=== PATIENT | female | born 2000 | race Caucasian/White ===

== ENCOUNTER 2022-04-04 00:47 | Inpatient (IN) | payer MEDICAID ==
[2022-04-04] MEDS ORDERED: IBUPROFEN 600 MG TABLET PO PRN (01:25)
[2022-04-04] MEDS ORDERED: SODIUM CHLORIDE FLUSH 0.9% 10 ML SYRINGE IVP PRN (01:25)
[2022-04-04] MEDS ORDERED: CEFOTETAN DISODIUM 2 GM in SODIUM CHLORIDE 0.9% MINIBAG 100 ML IV SCH (02:00)
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
[2022-04-04] MEDS ORDERED: CEFOTETAN DISODIUM 1 GM VIAL ONE ×2 (04:03→13:37)
[2022-04-04] MEDS: SODIUM CHLORIDE 0.9% 1,000 ML IV SCH ×2 (04:06→14:15)
[2022-04-04] MEDS: ONDANSETRON 4 MG/2 ML VIAL IVP PRN ×3 (04:08→23:59)
[2022-04-04] MEDS: oxyCODONE 5 MG TABLET PO PRN ×5 (04:08→23:59)
[2022-04-04] MEDS: SODIUM CHLORIDE FLUSH 0.9% 10 ML SYRINGE IVP SCH ×2 (04:08→16:03)
[2022-04-04 05:29] LABS: BASOPHILS % (AUTO) 0.1 %; HCT - HEMATOCRIT 38.9 % (37.0-47.0); LYMPHOCYTES # (AUTO) 2.1 10^3/uL (1.5-3.5); LYMPHOCYTES % (AUTO) 12.7 %; MEAN CORPUSCULAR HEMOGLOBIN 30.1 pg (27.0-31.0); MEAN CORPUSCULAR HGB CONC 33.4 g/dL (32.0-36.0); MEAN PLATELET VOLUME 9.8 fL (7.9-10.8); MONOCYTES % (AUTO) 6.3 %; NEUTROPHILS # (AUTO) 13.3 10^3/uL (1.5-6.6); NEUTROPHILS % (AUTO) 80.5 %; PLT - PLATELET COUNT 314 10^3/uL (130-450); RED BLOOD COUNT 4.32 10^6/uL (4.20-5.40); WHITE BLOOD COUNT 16.5 x10^3/uL (4.8-10.8)
[2022-04-04 05:52] LABS: ALBUMIN/GLOBULIN RATIO 1.2 (1.0-2.2); BILIRUBIN,TOTAL 0.6 mg/dL (0.2-1.0); CALCIUM 9.2 mg/dL (8.5-10.3); CREATININE 0.6 mg/dL (0.4-1.0); POTASSIUM 3.4 mmol/L (3.5-5.0); TOTAL PROTEIN 7.4 g/dL (6.7-8.2)
[2022-04-04] MEDS: DOXYCYCLINE 100 MG TABLET PO SCH ×2 (08:37→21:18)
[2022-04-04] MEDS: FLUoxetine 10 MG CAPSULE PO SCH (10:07)
[2022-04-04] MEDS: ONDANSETRON ODT 4 MG TABLET TL PRN (10:18)
[2022-04-04] MEDS: CEFOTETAN DISODIUM 2 GM in SODIUM CHLORIDE 0.9% 100ML 100 ML IV SCH (14:15)
--- NOTE | 2022-04-04 16:15 | PHARMACY PROGRESS NOTE ---
- Best Possible Medication History Admit Date and Time: 04/04/22 0225 Processed by: Pharmacy Medication History completed: Yes Patient Interview: Completed Secondary Source(s): Insurance records (See Addendum) As the person ultimately responsible for medication therapy, providers are able to order a medication from an existing home medication list in [facility] via the "Reconcile Routine" prior to Confirmation of that medication by air support operations operator. Such practice is discouraged except when the physician, in their clinical judgment, deems that a medical need exists for a medication without regard to previous use.
[2022-04-04] MEDS ORDERED: LOPERAMIDE 2 MG CAPSULE PO PRN (16:55)
[2022-04-04] MEDS: KETOROLAC 30 MG/ML VIAL IVP SCH ×2 (17:10→23:57)
[2022-04-04] MEDS: PROMETHAZINE 25 MG/1 ML VIAL IM PRN (17:13)
[2022-04-04] MEDS ORDERED: KETOROLAC 30 MG/ML VIAL ONE (17:17)
[2022-04-04] MEDS: ACETAMINOPHEN 325 MG TABLET PO PRN ×2 (19:57→23:59)
[2022-04-05] MEDS: SODIUM CHLORIDE 0.9% 1,000 ML IV SCH ×2 (00:05→10:40)
[2022-04-05] MEDS: PROMETHAZINE 25 MG/1 ML VIAL IM PRN ×2 (00:46→06:50)
[2022-04-05] MEDS: CEFOTETAN DISODIUM 2 GM in SODIUM CHLORIDE 0.9% 100ML 100 ML IV SCH ×2 (01:42→14:14)
[2022-04-05] MEDS ORDERED: LORazepam 0.5 MG TABLET SL SCH (02:00)
[2022-04-05] MEDS: KETOROLAC 30 MG/ML VIAL IVP SCH ×2 (04:00→10:40)
[2022-04-05] MEDS: ONDANSETRON 4 MG/2 ML VIAL IVP PRN (05:59)
[2022-04-05 06:10] LABS: HBsAG SCREEN Negative (Negative); HCV AB <0.1 s/co ratio (0.0-0.9); HEPATITIS B CORE IGM AB Negative (Negative)
[2022-04-05] MEDS ORDERED: NICOTINE 21 MG PATCH TOP SCH (09:00)
[2022-04-05] MEDS: oxyCODONE 5 MG TABLET PO PRN ×3 (09:44→18:07)
[2022-04-05] MEDS: FLUoxetine 10 MG CAPSULE PO SCH (09:45)
[2022-04-05] MEDS: DOXYCYCLINE 100 MG TABLET PO SCH (09:45)
[2022-04-05] MEDS: SODIUM CHLORIDE FLUSH 0.9% 10 ML SYRINGE IVP SCH ×3 (09:46→17:45)
[2022-04-05 10:36] LABS: BASOPHILS % (AUTO) 0.1 %; HCT - HEMATOCRIT 41.2 % (37.0-47.0); HGB - HEMOGLOBIN 13.6 g/dL (12.0-16.0); LYMPHOCYTES # (AUTO) 1.4 10^3/uL (1.5-3.5); LYMPHOCYTES % (AUTO) 10.1 %; MEAN CORPUSCULAR HEMOGLOBIN 29.6 pg (27.0-31.0); MEAN CORPUSCULAR VOLUME 89.8 fL (81.0-99.0); MEAN PLATELET VOLUME 9.4 fL (7.9-10.8); MONOCYTES # (AUTO) 0.4 10^3/uL (0.0-1.0); NEUTROPHILS % (AUTO) 86.5 %; PLT - PLATELET COUNT 279 10^3/uL (130-450); RED BLOOD COUNT 4.59 10^6/uL (4.20-5.40); RED CELL DISTRIBUTION WIDTH 13.1 % (12.0-15.0); WHITE BLOOD COUNT 13.8 x10^3/uL (4.8-10.8)
[2022-04-05 10:48] LABS: ALBUMIN 3.7 g/dL (3.2-5.5); ALBUMIN/GLOBULIN RATIO 1.1 (1.0-2.2); BILIRUBIN,TOTAL 0.4 mg/dL (0.2-1.0); CALCIUM 8.9 mg/dL (8.5-10.3); CREATININE 0.7 mg/dL (0.4-1.0); POTASSIUM 3.9 mmol/L (3.5-5.0); TOTAL PROTEIN 7.2 g/dL (6.7-8.2)
[2022-04-05] MEDS ORDERED: LORazepam 0.5 MG TABLET SL PRN (12:52)
[2022-04-05] MEDS ORDERED: FAMOTIDINE 20 MG/2 ML VIAL IVP SCH (13:00)
--- NOTE | 2022-04-05 13:32 | PROVIDER PROGRESS NOTE ---
Subjective - Prog Note Date Prog Note Date: 04/05/22 Prog Note Time: 12:28 - Subjective Subjective: ID: Patient is a 21 yo F admitted as a transfer from [place] with PID complicated by severe nausea and vomiting. S: Had planned on discharge today but patient does not feel she is ready to go home. Has significant upper abdominal pain. Reports nausea and vomiting but has been able to tolerate doxycycline. Has not had witnessed emesis. Potassium normalized on today's CMP. Ordered c Diff screen but patient has not had fecal incontinence sine it was ordered. Reports stool in hat in toilet. Soft but well formed. WBC declining. Has been afebrile overnight. Hepatitis panel was negative. GCCT not yet resulted at OSH. Negative trichomonas screening. HR has been in bradycardic range, no symptoms. Baseline HR less than 50 and has been seen by Cardiology as outpatient. O: VS: 98.4 45 145/88 17 98% GEN: NAD HEENT: NCAT CV: bradycardic RESP: nl effort ABD: S&ND. Mild TTP in epigastric area and possibly in RUQ. No suprapubix TTP EXT: WWP, NT PSYCH: interactive NEURO: A&O. Normal coordination. A/P: 21 yo F with PID here for in-patient antibiotics PID: Afebrile. WBC trending down. No report of suprapubic of pelvic pain. -Reports GI distress, nausea, and epigastric pain -No longer with fecal incontinence -Trichomonas screen negative -GCCT pending from outside facility -Has been receiving cefotetan 2g IV BID and doxycycline 100 mg po BID. -WBC mildly elevated this am BPD/Depression/anxiety: -Fluoxetine 20 mg po bid -Lorazepam 0.5 mg po Q6H prn anxiety/nausea TOBACCO DEPENDENCE: -1.5 ppd with smoking prior to breakfast -nicotine patch 21 mg TD Q24 hours ordered GI DISTRESS: -No longer having fecal incontinence -Starting famotidine 40 mg IV Qday -Ondansetron/phenergan for nausea Objective - Vital Signs/Intake & Output Vital Signs: Vital Signs x48h Temp Pulse Resp BP Pulse Ox 04/05/22 08:00 98.8 F 63 16 154/96 H 97 Intake & Output: Intake & Output 04/02/22 04/03/22 04/04/22 04/05/22 23:59 23:59 23:59 23:59 Intake Total 0080 7003.333 Balance 3720 2783.333 - Lab Results Fish Bones: 04/05/22 10:28 04/05/22 10:28 Other Labs: Lab Results x24hrs 04/05/22 04/05/22 04/04/22 Range/Units 10:28 10:28 04:36 WBC 13.8 H (4.8-10.8) x10^3/uL RBC 4.59 (4.20-5.40) 10^6/uL Hgb 13.6 (12.0-16.0) g/dL Hct 41.2 (37.0-47.0) % MCV 89.8 (81.0-99.0) fL MCH 29.6 (27.0-31.0) pg MCHC 33.0 (32.0-36.0) g/dL RDW 13.1 (12.0-15.0) % Plt Count 279 (130-450) 10^3/uL MPV 9.4 (7.9-10.8) fL Neut # (Auto) 12.0 H (1.5-6.6) 10^3/uL Lymph # (Auto) 1.4 L (1.5-3.5) 10^3/uL [place] # (Auto) 0.4 (0.0-1.0) 10^3/uL Eos # (Auto) 0.0 (0.0-0.7) 10^3/uL Baso # (Auto) 0.0 (0.0-0.1) 10^3/uL Absolute Nucleated RBC 0.00 x10^3/uL Nucleated RBC % 0.0 /100WBC Sodium 135 (135-145) mmol/L Potassium 3.9 (3.5-5.0) mmol/L Chloride 101 (101-111) mmol/L Carbon Dioxide 24 (21-32) mmol/L Anion Gap 10.0 (6-13) BUN 5 L (6-20) mg/dL Creatinine 0.7 (0.4-1.0) mg/dL Estimated GFR (MDRD) 105 (>89) Glucose 126 H (70-100) mg/dL Calcium 8.9 (8.5-10.3) mg/dL Total Bilirubin 0.4 (0.2-1.0) mg/dL AST 26 (10-42) IU/L ALT 23 (10-60) IU/L Alkaline Phosphatase 64 (42-121) IU/L Total Protein 7.2 (6.7-8.2) g/dL Albumin 3.7 (3.2-5.5) g/dL Globulin 3.5 (2.1-4.2) g/dL Albumin/Globulin Ratio 1.1 (1.0-2.2) Hepatitis A IgM Ab Negative (Negative) Hep Bs Antigen Negative (Negative) Hep B Core IgM Ab Negative (Negative) Hepatitis C Antibody <0.1 (0.0-0.9) s/co ratio Hepatitis C Interp Comment (.)
[2022-04-05 15:44] VITALS: BP 134/70
[2022-04-05] MEDS ORDERED: IBUPROFEN 600 MG TABLET PO PRN (17:00)
--- NOTE | 2022-04-05 17:57 | Discharge Plan ---
Discharge Plan Problem Reviewed?: Yes Disposition: Home, Self Care Condition: Good Prescriptions: LORazepam [Ativan] 0.5 mg PO Q6H 12 Days #48 tablet Famotidine 40 mg PO DAILY #30 tablet metroNIDAZOLE [Flagyl] 500 mg PO BID 12 Days #24 tablet Ondansetron [Ondansetron Odt] 8 mg PO Q8H PRN #45 tab PRN Reason: Nausea / Vomiting Doxycycline Hyclate [Vibramycin] 100 mg PO BID 12 Days #24 cap Diet: Regular Activity Restrictions: Additional Comments (Nothing in the vagina for at least 2 weeks Must fully recover froom infection. Continue doxycycline 100 mg by mouth twice a day for 14 days metronidazole 500 mg by mouth twice a day for 14 days Failure to complete the antibiotics can result in recurrent infection) Shower Restrictions: No Driving Restrictions: Yes (No driving while taking lorazepam) Additional Instructions or Follow Up instructions: Please complete the FULL course of antibiotics (doxycycline and metronidazole). Failure to complete the treatment course can result in recurrent infection with bacteria resistant to antibiotics. No intercourse for 2 weeks and not until after partner has been screened and t reated for at least 2 weeks. Call for fever more than 100.5, pain that does not improve with pain medication, or vomiting such that you cannot take your antibiotics Please follow up with your local obstetric provider No Smoking: If you smoke, Please STOP! Call for help.
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
[2022-04-05] MEDS: ONDANSETRON ODT 4 MG TABLET TL PRN (18:07)
[2022-04-05] MEDS ORDERED: FLUoxetine 10 MG CAPSULE PO SCH (21:00)
[2022-04-08 11:23] LABS: HCV AB <0.1 s/co ratio (0.0-0.9)
== END 2022-04-05 18:15 | disposition home or self-care (01) | DRG 759 ==
LOC: MS2 02:25
PROVIDERS: ADMIT Obstetrics & Gynecology; ATTEND Obstetrics & Gynecology
DX: N73.9 Female pelvic inflammatory disease, unspecified (principal); R11.2 Nausea with vomiting, unspecified; Z97.5 Presence of (intrauterine) contraceptive device; R15.9 Full incontinence of feces; Z91.410 Personal history of adult physical and sexual abuse; F17.200 Nicotine dependence, unspecified, uncomplicated; G40.909 Epilepsy, unspecified, not intractable, without status epilepticus; F43.10 Post-traumatic stress disorder, unspecified; F32.A Depression, unspecified; F41.9 Anxiety disorder, unspecified; R10.13 Epigastric pain; L98.9 Disorder of the skin and subcutaneous tissue, unspecified; Z59.00 Homelessness unspecified
CPT/HCPCS: 36415; 80053; 85025; 86705; 86709; 86803; 87493; 87522; 93041; 99406; A9270; Q0162